=== PATIENT | male | born 1980 | race Caucasian/White ===

== ENCOUNTER 2022-12-06 13:08 | Emergency (ER) | payer OTHER ==
[~2022-12-06] VITALS: Ht 170.2 cm; Wt 92.5 kg
[2022-12-06] MEDS ORDERED: LIDOCAINE 1% 500 MG/ 50 ML VIAL INJ ONE (15:15)
[2022-12-06] MEDS ORDERED: LIDOCAINE MPF 1% 5 ML ONE (15:19)
[2022-12-06] MEDS ORDERED: IBUP-2213 PO (15:59)
[2022-12-06] MEDS ORDERED: SULF-58 PO (15:59)
[2022-12-06] MEDS ORDERED: ACET-8905 PO (15:59)
--- NOTE | 2022-12-06 16:23 | NUR ---
LONG FINGER SPLINT APPLIED TO R INDEX FINGER + CMS. DRESSED WITH NON ADHERENT AND BANDAGED WITH ROLLER GAUZE.
[2022-12-06 16:44] VITALS: BP 150/90
== END 2022-12-06 16:50 | disposition home or self-care (01) ==
LOC: MED 13:08
DX: S61.310A Laceration without foreign body of right index finger with damage to nail, initial encounter (principal); Z79.899 Other long term (current) drug therapy; X50.9XXA Other and unspecified overexertion or strenuous movements or postures, initial encounter; Y93.89 Activity, other specified; Y92.89 Other specified places as the place of occurrence of the external cause; Y99.8 Other external cause status
CPT/HCPCS: 11740; 73140; 99284; J2001